=== PATIENT | female | born 1945 | race Caucasian/White ===

== ENCOUNTER 2017-04-23 21:34 | Inpatient (IN) | payer MEDICARE ==
[~2017-04-23] VITALS: Ht 172.7 cm; Wt 78.9 kg
[~2017-04-23 21:34] MED LIST: AMLO5TAB2 PO; ASPI-555 PO; CARV12.511 PO; FLUO20TA29 PO; METF500T6 PO; OLME40TA8 PO; PRAV40TA3 PO
[2017-04-23] MEDS ORDERED: ASPIRIN 325 MG TABLET ONE (22:06)
[2017-04-23] MEDS ORDERED: NITROGLYCERIN 1GM/1 INCH PACKET TD ONE (22:07)
[2017-04-23 22:24] LABS: BASOPHILS % (AUTO) 0.8 % (0.0-5.0); EOSINOPHILS % (AUTO) 1.4 % (0.0-8.0); HEMATOCRIT 39.2 % (36-48); LYMPHOCYTES % (AUTO) 43.6 % (21.0-51.0); MEAN CORPUSCULAR HEMOGLOBIN 32.6 pg (27.0-33.0); MEAN CORPUSCULAR VOLUME 90.5 fL (79-99); MONOCYTES % (AUTO) 8.6 % (3.0-13.0); NEUTROPHILS % (AUTO) 45.6 % (40.0-77.0); NUCLEATED RED BLOOD CELLS 0.1 % (0.0-0.19); PLATELET COUNT (AUTO) 224 K/uL (130-400); RED BLOOD CELL COUNT(AUTO) 4.33 MIL/uL (4.00-5.50); RED CELL DISTRIBUTION WIDTH 13.2 % (11.0-15.5); WHITE BLOOD COUNT (AUTO) 6.8 K/uL (4.8-10.8)
[2017-04-23 22:37] LABS: APPEARANCE,URINE Clear (CLEAR); BILIRUBIN,URINE Negative (NEGATIVE); COLOR,URINE Yellow (YELLOW); GLUCOSE, URINE (UA) Negative (NEGATIVE); KETONES,URINE Negative (NEGATIVE); LEUKOCYTE ESTERASE ,URINE Trace (NEGATIVE); NITRATE,URINE Negative (NEGATIVE); OCCULT BLOOD,URINE Trace (NEGATIVE); PH,URINE 7.5 (5.0-8.0); PROTEIN,URINE Negative (NEGATIVE); UROBILINOGEN,URINE 0.2 mg/dL (0.2-1.0)
[2017-04-23 22:40] LABS: CREATININE 0.8 mg/dL (0.5-1.5); INR 0.91 (0.85-1.15); PARTIAL THROMBOPLASTIN TIME 24.5 SEC (26.3-35.5); POTASSIUM 4.1 mmol/L (3.5-5.1); PROTHROMBIN TIME 9.6 SEC (9.6-11.6)
[2017-04-23 22:41] LABS: B-TYPE NATRIURETIC PEPTIDE 50 pg/mL (0-100)
[2017-04-23 22:52] LABS: BACTERIA,URINE Rare /HPF (None Seen); SQUAMOUS EPITHELIAL CELL,UR Moderate /LPF (0-2)
[2017-04-23 22:53] LABS: ALBUMIN 3.9 g/dL (3.5-5.0); BILIRUBIN,TOTAL 0.5 mg/dL (0.2-1.0); CREATINE KINASE MB 0.7 ng/mL (0.5-3.6); TOTAL PROTEIN, SERUM 7.3 g/dL (6.0-8.3)
[2017-04-24 01:45] VITALS: BP 140/57
[2017-04-24] MEDS ORDERED: ONDANSETRON HCL 4 MG/2 ML VIAL IVP PRN (03:45)
[2017-04-24] MEDS ORDERED: ZOLPIDEM TARTRATE 5 MG TAB PO PRN (03:45)
[2017-04-24] MEDS ORDERED: ACETAMINOPHEN 325 MG TAB PO PRN ×2 (03:45)
[2017-04-24] MEDS ORDERED: CLONIDINE HCL 0.1 MG TABLET PO PRN (03:45)
[2017-04-24] MEDS ORDERED: LACTULOSE 20 GM/30 ML UDCUP PO PRN (03:45)
[2017-04-24] MEDS ORDERED: GUAIFENESIN SUGAR-FREE 100 MG/5 ML UDCUP PO PRN (03:45)
[2017-04-24] MEDS ORDERED: NITROGLYCERIN 0.4 MG SL TAB SL PRN (03:45)
[2017-04-24 04:00] VITALS: BP 139/74
[2017-04-24 04:57] LABS: HEMATOCRIT 36.8 % (36-48); MEAN CORPUSCULAR HEMOGLOBIN 32.2 pg (27.0-33.0); MEAN CORPUSCULAR HGB CONC 35.8 g/dL (32.0-36.0); MEAN CORPUSCULAR VOLUME 89.8 fL (79-99); PLATELET COUNT (AUTO) 202 K/uL (130-400); RED CELL DISTRIBUTION WIDTH 13.3 % (11.0-15.5); WHITE BLOOD COUNT (AUTO) 6.1 K/uL (4.8-10.8)
[2017-04-24 05:24] LABS: CARBON DIOXIDE 27 mmol/L (21-32); CHLORIDE 97 mmol/L (101-111); CHOLESTEROL 238 mg/dL (<200); CREATINE KINASE MB 0.6 ng/mL (0.5-3.6); CREATINE KINASE, TOTAL 76 U/L (21-232); CREATININE 0.7 mg/dL (0.5-1.5); GLOMERULAR FILTR. RATE CALC 88 mL/min (>60); GLUCOSE,RANDOM 102 mg/dL (70-105); HDL CHOLESTEROL 71 mg/dL (35-85); LDL DIRECT 157 mg/dL (0-99); MYOGLOBIN 43 ng/mL (10-92); POTASSIUM 3.9 mmol/L (3.5-5.1); SODIUM SERUM 132 mmol/L (136-145); TRIGLYCERIDES 93 mg/dL (30-200); TROPONIN I < 0.04 ng/mL (0.00-0.06); UREA NITROGEN, BLOOD 14 mg/dL (7-18)
[2017-04-24] MEDS ORDERED: CEFTRIAXONE SODIUM 1 GM IVP SCH (06:30)
[2017-04-24] MEDS: LEVOFLOXACIN 500 MG/D5W 100 ML 100 ML IV SCH ×2 (06:52→06:53)
[2017-04-24 07:38] VITALS: BP 133/87
[2017-04-24] MEDS ORDERED: ASPIRIN 325 MG TABLET PO SCH (09:00)
[2017-04-24] MEDS ORDERED: METOPROLOL TARTRATE 25 MG TAB PO SCH (09:00)
[2017-04-24] MEDS: FAMOTIDINE 20MG TAB 20 MG TAB PO SCH ×2 (09:00→19:23)
[2017-04-24] MEDS: ENOXAPARIN SODIUM 30 MG/0.3 ML SQ SCH (09:00)
[2017-04-24 11:18] LABS: CREATINE KINASE MB 0.5 ng/mL (0.5-3.6); CREATINE KINASE, TOTAL 74 U/L (21-232); MYOGLOBIN 37 ng/mL (10-92); TROPONIN I < 0.04 ng/mL (0.00-0.06)
[2017-04-24] MEDS ORDERED: LOSARTAN 100 MG TABLET ONE (11:36)
[2017-04-24] MEDS ORDERED: AMLODIPINE BESYLATE 5 MG TAB PO ONE (11:36)
[2017-04-24] MEDS ORDERED: CARVEDILOL 12.5 MG TABLET PO ONE (11:36)
[2017-04-24] MEDS ORDERED: ASPIRIN 81MG TAB.CHEW ONE (11:36)
[2017-04-24 11:39] VITALS: BP 153/76
[2017-04-24 16:12] VITALS: BP 128/59
[2017-04-24 19:49] VITALS: BP 125/75
[2017-04-24] MEDS: CARVEDILOL 12.5 MG TABLET PO SCH (20:55)
[2017-04-24] MEDS: AMLODIPINE BESYLATE 5 MG TAB PO SCH (20:56)
[2017-04-24] MEDS ORDERED: FLUOXETINE HCL 20 MG CAPSULE PO SCH (21:00)
[2017-04-24] MEDS ORDERED: ATORVASTATIN CALCIUM 20 MG TABLET PO SCH (21:00)
[2017-04-25 04:00] VITALS: BP 119/69
[2017-04-25 08:15] VITALS: BP 136/81
[2017-04-25] MEDS: CARVEDILOL 12.5 MG TABLET PO SCH (09:00)
[2017-04-25] MEDS: ENOXAPARIN SODIUM 30 MG/0.3 ML SQ SCH (09:00)
[2017-04-25] MEDS: ASPIRIN 81 MG EC TAB PO SCH ×2 (09:00→16:35)
[2017-04-25] MEDS ORDERED: AMLODIPINE BESYLATE 5 MG TAB PO SCH ×2 (09:00)
[2017-04-25] MEDS ORDERED: LOSARTAN 100 MG TABLET PO SCH (09:00)
[2017-04-25] MEDS: LEVOFLOXACIN 500 MG TABLET PO SCH ×2 (09:26→16:35)
[2017-04-25] MEDS: FAMOTIDINE 20MG TAB 20 MG TAB PO SCH (09:46)
[2017-04-25] MEDS: AMLODIPINE BESYLATE 5 MG TAB PO SCH (09:46)
[2017-04-25 11:45] VITALS: BP 127/69
[2017-04-25] MEDS ORDERED: REGADENOSON 0.4 MG/5 ML PF SYG IVP SCH (12:45)
[2017-04-25 16:00] VITALS: BP 125/74
[2017-04-25] MEDS ORDERED: NITR0.4T50 SL (18:00)
== END 2017-04-25 19:00 | disposition home or self-care (01) | DRG 311 ==
LOC: EDH 21:34 → EDHIP 22:44 → OBSVTOIN 22:44 → 2AH 04-24 01:52
PROVIDERS: ADMIT Family Medicine; ATTEND Family Medicine
DX: I20.9 Angina pectoris, unspecified (principal); E11.9 Type 2 diabetes mellitus without complications; N39.0 Urinary tract infection, site not specified; Z90.49 Acquired absence of other specified parts of digestive tract; E78.5 Hyperlipidemia, unspecified; F17.210 Nicotine dependence, cigarettes, uncomplicated; I10 Essential (primary) hypertension; F41.9 Anxiety disorder, unspecified; Z88.0 Allergy status to penicillin; Z88.8 Allergy status to other drugs, medicaments and biological substances; Z28.21 Immunization not carried out because of patient refusal
CPT/HCPCS: 36415; 71045; 78452; 80048; 80053; 80061; 81001; 82550; 82553; 82948; 83874; 83880; 84484; 85025; 85027; 85610; 85730; 93005; 93017; 93306; 96374; 99291; A9500; J1650; J1956; J2785

== ENCOUNTER 2021-04-06 16:08 | Emergency (ER) | payer MEDICARE ==
[~2021-04-06] VITALS: Ht 172.7 cm; Wt 67.1 kg
[~2021-04-06 16:08] MED LIST changes: +AMLO-257 PO; -AMLO5TAB2 PO; -ASPI-555 PO; +ASPI-556 PO; +METF-444 PO; -METF500T6 PO; +NITR0.4T50 SL
[2021-04-06 17:28] VITALS: BP 103/63
== END 2021-04-06 17:46 | disposition left against medical advice (07) ==
LOC: EDH 16:08
DX: R53.1 Weakness (principal); Z53.21 Procedure and treatment not carried out due to patient leaving prior to being seen by health care provider